=== PATIENT | female | born 1960 | race Caucasian/White ===

== ENCOUNTER 2016-05-11 21:32 | Emergency (ER) | payer SELFPAY ==
[~2016-05-11] VITALS: Ht 149.9 cm; Wt 59.1 kg
[~2016-05-11 21:32] MED LIST: NO HOME MEDICATIONS
[2016-05-11 21:36] VITALS: BP 133/68; PULSE 112; TEMP 98.4
== END 2016-05-11 22:26 | disposition home or self-care (01) ==
LOC: COL.ER 21:32
DX: S02.82XD Fracture of other specified skull and facial bones, left side, subsequent encounter for fracture with routine healing (principal); X58.XXXD Exposure to other specified factors, subsequent encounter